=== PATIENT | female | born 1980 | race Native Hawaiian/Other Pacific Islander ===

== ENCOUNTER 2017-08-14 20:27 | Emergency (ER) | payer OTHER ==
[2017-08-14 20:41] VITALS: O2SAT 98
--- NOTE | 2017-08-14 21:02 | ED PDOC ---
HPI: SOB/CHF/COPD Time Seen by Provider: 08/14/17 20:48 Chief Complaint (Nursing): Shortness Of Breath Chief Complaint (Provider): shortness of breath History Per: Patient History/Exam Limitations: no limitations Onset/Duration Of Symptoms: Hrs (2) Current Symptoms Are (Timing): Still Present Additional History Per: Patient Additional Complaint(s): 37 y/o female, approx 26 weeks gestation, presents with shortness of breath x 2 hours. Patient states she was laying down when symptoms started. Patient also with associated "tightness" in left side of chest. Notes mild cough x 2 days. Patient states she has been excessively yawning to try and compensate for feeling short of breath. Denies fever, nasal congestion/discharge, palpitations , abdominal pain, vaginal bleeding/discharge, dysuria/hematuria, leg pain/ swelling, recent travel. Past Medical History Reviewed: Historical Data, Nursing Documentation, Vital Signs Vital Signs: Last Vital Signs Temp 98.2 F 08/14/17 23:06 Pulse 85 08/14/17 23:06 Resp 18 08/14/17 23:06 BP 131/53 L 08/14/17 23:06 Pulse Ox 98 08/14/17 23:18 - Medical History PMH: Anemia - Surgical History Surgical History: No Surg Hx - Family History Family History: States: Unknown Family Hx - Living Arrangements Living Arrangements: With Family - Social History Current smoker - smoking cessation education provided: No Ex-Smoker (has not smoked in the last 12 months): No - Home Medications Home Medications: Ambulatory Orders Medication Instructions Recorded Prednisone 20 mg PO BID #8 tab 09/23/15 - Allergies Allergies/Adverse Reactions: Allergies Allergy/AdvReac Type Severity Reaction Status Date / Time Iodine and Iodide Containing Allergy RASH Verified 08/14/17 20:33 Produc contrast media Allergy RASH Uncoded 08/14/17 20:33 Review of Systems ROS Statement: Except As Marked, All Systems Reviewed And Found Negative Cardiovascular: Positive for: Chest Pain Respiratory: Positive for: Shortness of Breath Physical Exam - Reviewed Nursing Documentation Reviewed: Yes Vital Signs Reviewed: Yes - Physical Exam Appears: Positive for: Well, Non-toxic, No Acute Distress Head Exam: Positive for: ATRAUMATIC, NORMAL INSPECTION, NORMOCEPHALIC Skin: Positive for: Normal Color Eye Exam: Positive for: Normal appearance ENT: Positive for: Normal ENT Inspection Cardiovascular/Chest: Positive for: Regular Rate, Rhythm Respiratory: Positive for: Normal Breath Sounds Gastrointestinal/Abdominal: Positive for: Normal Exam Back: Positive for: Normal Inspection Extremity: Positive for: Normal ROM Neurologic/Psych: Positive for: Alert, Oriented - Laboratory Results Result Diagrams: 08/14/17 21:40 08/14/17 21:45 - ECG ECG: Positive for: Viewed By Me (reviewed by ED attending) ECG Rhythm: Positive for: Sinus Rhythm O2 Sat by Pulse Oximetry: 98 - Progress ED Course And Treament: Case discussed with ED attending Dr. Quintanilla; will order labs, venous duplex bilater lower extremities Patient requesting to leave to go eat and then come back to resume testing; given sandwich EXAM: US Duplex Bilateral Lower Extremity Veins CLINICAL HISTORY: 37 years old, female; Signs and symptoms; Other: Shortness of breathe/chest pain ; Additional info: R/out dvt TECHNIQUE: Real-time ultrasound scan of the veins of the bilateral lower extremities with color Doppler flow, spectral waveform analysis and compression. COMPARISON: No relevant prior studies available. FINDINGS: Right deep veins: Unremarkable. No DVT in the right common femoral, femoral, proximal deep femoral or popliteal veins. The veins demonstrate normal color flow, are normally compressible, with normal phasic flow and/or augmentation response. Right superficial veins: Unremarkable. Left deep veins: Unremarkable. No DVT in the left common femoral, femoral, proximal deep femoral or popliteal veins. The veins demonstrate normal color flow, are normally compressible, with normal phasic flow and/or augmentation response. Left superficial veins: Unremarkable. Soft tissues: No acute findings. No popliteal cyst. IMPRESSION: Normal bilateral lower extremity duplex venous ultrasound. On re-eval, patient states she is feeling better. Vitals remain stable. Low suspicion for PE. Patient educated on lab and u/s findings, offered CTA chest for further eval but patient states she does not wish to have test done. Case discussed with ED attending Dr. Quintanilla, agrees with plan to d/c and follow up outpatient with strict return instructions. 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 Return to ED for worsening chest pain, shortness of breath, palpitations, or other concerning symptoms. Disposition - Clinical Impression Clinical Impression: Dyspnea - Patient ED Disposition Is Patient to be Admitted: No Counseled Patient/Family Regarding: Studies Performed, Diagnosis, Need For Followup - Disposition Referrals: Drea Gauthier MD [Primary Care Provider] - Disposition: Routine/Home Disposition Time: 23:02 Condition: IMPROVED Instructions: Dyspnea (ED)
[2017-08-14 21:51] LABS: BASO % 0.3 % (0.0-2.0); EOS # 0.1 K/uL (0.0-0.7); EOS % 0.9 % (0.0-4.0); HEMATOCRIT 29.8 % (34.0-47.0); LYMPH % 17.2 % (20.0-40.0); MEAN CELL VOLUME 70.9 fl (81.0-99.0); MEAN CORPUSCULAR HEMOGLOBIN 23.2 pg (27.0-31.0); MEAN CORPUSCULAR HGB CONC 32.7 g/dL (33.0-37.0); MONO # 0.8 K/uL (0.0-0.8); MONO % 6.4 % (0.0-10.0); NEUT # 8.8 K/uL (1.8-7.0); NEUT % 75.2 % (50.0-75.0); NRBC % 0.2 % (0.0-0.0); RED CELL DISTRIBUTION WIDTH 18.1 % (11.5-14.5); WHITE BLOOD COUNT 11.8 K/uL (4.8-10.8)
[2017-08-14 22:10] LABS: ALB/GLOB RATIO 1.1 (1.0-2.1); ALKALINE PHOSPHATASE 67 U/L (38-126); ALT/SGPT 52 U/L (9-52); AST/SGOT 36 U/L (14-36); BILIRUBIN,TOTAL 0.5 mg/dl (0.2-1.3); BLOOD UREA NITROGEN 6 mg/dl (7-17); CARBON DIOXIDE 20 mmol/L (22-30); CHLORIDE 106 mmol/L (98-107); GFR AFRICAN-AMERICAN > 60; GLUCOSE,RANDOM 82 mg/dL (65-105); POTASSIUM 3.8 MMOL/L (3.6-5.0); SODIUM 135 mmol/l (132-148)
--- NOTE | 2017-08-14 22:17 | US ---
EXAM: US Duplex Bilateral Lower Extremity Veins CLINICAL HISTORY: 37 years old, female; Signs and symptoms; Other: Shortness of breathe/chest pain; Additional info: R/out dvt TECHNIQUE: Real-time ultrasound scan of the veins of the bilateral lower extremities with color Doppler flow, spectral waveform analysis and compression. COMPARISON: No relevant prior studies available. FINDINGS: Right deep veins: Unremarkable. No DVT in the right common femoral, femoral, proximal deep femoral or popliteal veins. The veins demonstrate normal color flow, are normally compressible, with normal phasic flow and/or augmentation response. Right superficial veins: Unremarkable. Left deep veins: Unremarkable. No DVT in the left common femoral, femoral, proximal deep femoral or popliteal veins. The veins demonstrate normal color flow, are normally compressible, with normal phasic flow and/or augmentation response. Left superficial veins: Unremarkable. Soft tissues: No acute findings. No popliteal cyst. IMPRESSION: Normal bilateral lower extremity duplex venous ultrasound.
[2017-08-14 23:08] VITALS: BP 131/53; PULSE 85; RESP 18; TEMP 98.2
== END 2017-08-14 23:17 | disposition home or self-care (01) ==
LOC: H.ER 20:27
DX: R06.00 Dyspnea, unspecified (principal); O99.512 Diseases of the respiratory system complicating pregnancy, second trimester; Z3A.26 26 weeks gestation of pregnancy